=== PATIENT | male | born 1990 | race Caucasian/White ===

== ENCOUNTER 2016-05-08 13:01 | Inpatient (IN) | payer SELFPAY ==
[~2016-05-08] VITALS: Ht 193 cm; Wt 80.6 kg
[2016-05-08] MEDS: NICOTINE 21MG/24HR 1 EA TRANSDERMAL TD SCH (09:00)
[2016-05-08 14:44] LABS: BASO % 0.5 % (0.0-1.0); EOS # 0.2 K/mm3 (0.0-0.50); EOS % 3.1 % (0.0-3.0); LARGE UNSTAINED CELL # 0.1 K/mm3 (0.0-0.4); LARGE UNSTAINED CELL % 1.6 % (0.0-4.0); LYMPH # 1.1 K/mm3 (1.5-6.5); LYMPH % 23.7 % (24.0-44.0); MEAN CORPUSCULAR HEMOGLOBIN 27.3 pg (27.0-33.0); MEAN CORPUSCULAR HGB CONC 32.7 g/dl (32.0-36.5); MEAN CORPUSCULAR VOLUME 83.6 fl (80.0-96.0); MONO # 0.3 K/mm3 (0.0-0.8); MONO % 6.2 % (0.0-5.0); NEUTROPHILS # 3.1 K/mm3 (1.8-7.7); NEUTROPHILS % 64.9 % (36.0-66.0); PLATELET COUNT, AUTOMATED 281 k/mm3 (150-450); RED CELL DISTRIBUTION WIDTH 12.2 % (11.5-14.5); WHITE BLOOD COUNT 4.7 K/mm3 (4.0-10.0)
[2016-05-08 14:47] LABS: ALBUMIN 4.2 GM/DL (3.2-5.2); ALKALINE PHOSPHATASE 56 U/L (45-117); ALT/SGPT 25 U/L (12-78); ANION GAP 4 MEQ/L (8-16); AST/SGOT 14 U/L (15-37); BILIRUBIN,DIRECT 0.2 MG/DL (0.0-0.2); BILIRUBIN,TOTAL 0.9 MG/DL (0.2-1.0); BLOOD UREA NITROGEN 6 MG/DL (7-18); CALCIUM LEVEL 9.3 MG/DL (8.5-10.1); CARBON DIOXIDE LEVEL 34 MEQ/L (21-32); CHLORIDE LEVEL 104 MEQ/L (98-107); CREATININE FOR GFR 0.96 MG/DL (0.70-1.30); GLOMERULAR FILTRATION RATE > 60.0 (>60); GLUCOSE, FASTING 107 MG/DL (70-105); SODIUM LEVEL 142 MEQ/L (136-145); TOTAL PROTEIN 7.2 GM/DL (6.4-8.2)
[2016-05-08 14:57] LABS: CONTROL LINE INT CTR LINE PRESENT; METHADONE URINE NEGATIVE (NEGATIVE); TRICYCLIC ANTIDEPRESS URINE NEGATIVE (NEGATIVE)
[2016-05-08 17:40] VITALS: BP 136/71
[2016-05-08] MEDS ORDERED: MOM 30ML SUSPENSION UDC PO PRN (19:00)
[2016-05-08] MEDS ORDERED: ACETAMINOPHEN TAB 650MG DOSE (2X325MG) PO PRN (19:00)
[2016-05-08] MEDS ORDERED: MAALOX 30 ML SUSP *UDC PO PRN (19:00)
[2016-05-08] MEDS ORDERED: traZODone 50 MG TAB PO PRN (19:00)
[2016-05-09 06:24] VITALS: BP 114/58
[2016-05-09] MEDS: NICOTINE 21MG/24HR 1 EA TRANSDERMAL TD SCH (09:00)
--- NOTE | 2016-05-09 11:18 | HPEPDOC ---
Medical History and Physical Date of Admission May 08, 2016 at 17:03 History and Physical PCP: None ATTENDING: Dr. Trever Lynn HPI: 25yoM admitted to [facility] for unspecified depressive disorder, being medically examined today. No acute medical complaints today. Denies any fevers, chills, weakness, fatigue, RUST, CP, SOB, cough, palpitations, abdominal pain, N/V /D or changes in bowel or bladder habits. 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 ROS: As noted in HPI, otherwise 11pt ROS of systems reviewed and unremarkable. PE: GEN: 25 yo M, appears stated age. Well-nourished, well developed. No acute distress. Alert and oriented x 3. Pleasant, interactive. HEENT: Normocephalic, atraumatic. Pupils are equal, round, and reactive to light. Extraocular movements are intact. No nystagmus appreciated. Sclera are nonicteric. Conjunctiva without injection. Nose midline. Nasal turbinates without bogginess. EACs both patent BL. TMs both visualized and ramey with good cone of light, no bulging or erythema. No facial asymmetry. Moist mucous membranes. Dentition fair. Pharynx pink and moist, no cobblestoning. Neck supple , trachea midline. No lymphadenopathy or thyromegaly appreciated. CHEST: Regular rate and rhythm, +S1, +S2 LUNGS: Clear to auscultation bilaterally. No wheezes, rales, or rhonchi. Breathing appears symmetric and easy. Patient is speaking in full sentences. No accessory muscle use. ABD: Round, soft, non-tender, non-distended. +Bowel sounds throughout. No rebound or guarding. No costovertebral angle tenderness. EXT: Pulses 2+ bilaterally dorsalis pedis and radial. No lower extremity edema appreciated. SKIN: [place], dry, warm. Capillary refill <2sec. No rashes. NEURO: Alert and oriented x 3. Cranial nerves III-XII are intact. No focal deficits appreciated. EKG: Pending. A&P: 25yoM admitted to [facility] for unspecified depressive disorder 1. Psych. Plan per Psychiatry. Obtain baseline EKG to assure the safety of psychiatric medications as they can prolong the QT interval. 2. Follow up. No Primary Care Provider. Will attempt to establish PCP on discharge. 3. Substance use. Per psychiatry. 4. Staff member present throughout exam, jaren Graf. Vital Signs Vital Signs Label Value Date Time Patient Temperature 96.3 degrees F 05/09/16 0624 Temperature Source Tympanic 05/09/16 06 Pulse 86 05/09/16 0624 Respiratory Rate 16 bpm 05/09/16 06 Blood Pressure Assessment 114/58 (76) 05/09/16 0624 Laboratory Data Labs 24H Laboratory Tests 2 05/08/16 14:04: Acetaminophen Level < 2.0L, Aspartate Amino Transf (AST/SGOT) 14L, Alanine Aminotransferase (ALT/SGPT) 25, Alkaline Phosphatase 56, Total Bilirubin 0.9, Direct Bilirubin 0.2, Albumin 4.2, Albumin/Globulin Ratio 1.40, Anion Gap 4L, White Blood Count 4.7, Red Blood Count 5.37, Hemoglobin 14.7, Hematocrit 44.9, Mean Corpuscular Volume 83.6, Mean Corpuscular Hemoglobin 27.3, Mean Corpuscular Hemoglobin Concent 32.7, Red Cell Distribution Width 12.2, Platelet Count 281, Neutrophils (%) (Auto) 64.9, Lymphocytes (%) (Auto) 23.7L, Monocytes (%) (Auto) 6.2H, Eosinophils (%) (Auto) 3.1H, Basophils (%) (Auto) 0.5, Neutrophils # (Auto) 3.1, Lymphocytes # (Auto) 1.1L, Monocytes # (Auto) 0.3, Eosinophils # (Auto) 0.2, Basophils # (Auto) 0.0, Calcium Level 9.3, Ethyl Alcohol Level 0.006, Glomerular Filtration Rate > 60.0, Large Unclassified Cells # 0.1, Large Unclassified Cells % 1.6, Salicylates Level < 1.7L, Thyroid Stimulating Hormone (TSH) 0.821, Total Creatine Kinase 130, Total Protein 7.2 05/08/16 14:34: Urine Amphetamines Screen NEGATIVE, Urine Benzodiazepines Screen NEGATIVE, Urine Opiates Screen NEGATIVE, Urine Barbiturates Screen NEGATIVE, Urine Cannabinoids Screen NEGATIVE, Urine Cocaine Metabolite Screen NEGATIVE, Urine Methadone Screen NEGATIVE, Urine Tricyclic Antidepressants NEGATIVE CBC/BMP Laboratory Tests 05/08/16 14:04 Red Blood Count 5.37, Mean Corpuscular Volume 83.6, Mean Corpuscular Hemoglobin 27.3, Mean Corpuscular Hemoglobin Concent 32.7, Red Cell Distribution Width 12.2 , Neutrophils (%) (Auto) 64.9, Lymphocytes (%) (Auto) 23.7 L, Monocytes (%) ( Auto) 6.2 H, Eosinophils (%) (Auto) 3.1 H, Basophils (%) (Auto) 0.5, Neutrophils # (Auto) 3.1, Lymphocytes # (Auto) 1.1 L, Monocytes # (Auto) 0.3, Eosinophils # (Auto) 0.2, Basophils # (Auto) 0.0 Home Medications No Active Prescriptions or Reported Meds Allergies Coded Allergies: No Known Allergies (Unverified , 05/08/16) Mary Avendano May 09, 2016 11:18
--- NOTE | 2016-05-09 15:01 | HPEPDOC ---
[facility] History & Physical History and Physical DATE OF ADMISSION: May 08, 2016 at 17:03 CHIEF COMPLAINT: "I've been upset, I was depressed and down." HISTORY OF THE PRESENT ILLNESS: Patient is a 25-year-old, single, father of 2 children, who apparently told his mother yesterday that he felt he needed to see if therapist, mother made calls for patient to see a therapist and was advised to send patient to [facility] emergency room for evaluation. Patient states to documentation writer "I don't need to be in the hospital but I was honest with them in the emergency room when I said that it would be easier if I wasn't living." Patient denies having plan or intent to kill self at time, however, per EMR apparently stated he was considering OD on pills and was unable to contract for safety while in the ER. Patient denies history of previous suicidal ideation, self-injurious behavior, and denies history of suicide attempt. Patient reports current anxiety level of 3/10, depression 3/10, denies all suicidal and homicidal ideation, denies audiovisual hallucinations, and denies urge to engage in self-injurious behavior. Per collateral information, over the past month patient has been experiencing depressed mood with bouts of crying, reduced appetite, reduced sleep, guilt, helplessness and hopelessness, marital problems, poor concentration, suicidal ideation, weight loss, and anxiety. Patient was also apparently found "passed out" last Friday after attempting to self medicate utilizing ecstasy. Patient informs documentation writer he feels his symptoms of depressed mood are related to his wanting to maintain his relationship with his girlfriend, who is the mother of his child, and his girlfriend apparently wants to terminate relationship. Patient adds symptoms began with recent breakup with girlfriend, adds he has been staying with his mother since the breakup. Patient denies history of discomfort in social settings, denies panic and impulse control problems states he does not experience compulsive behaviors, irritability, agitation or aggression, denies history of unsanctioned violence, and denies having access to weapons. Patient denies history of unstable mood, denies symptoms of hypomania and thomas, and he reports concentration and appetite have been stable. Patient endorses reduced energy level and challenges with sleep related to maintenance, indicates he sleeps approximately 6 hours per night and denies nightmares symptoms. Patient denies physical pain at time of assessment. PAST PSYCHIATRIC HISTORY: Prior Psychiatric Disorder: Patient denies. Outpatient Treatment: Patient denies. Suicidal/Self injurious: Patient denies. Psychotropic Medication History: Patient denies. ALLERGIES: Please see below. HOME MEDICATIONS: See below PAST MEDICAL/SURGICAL HISTORY: Patient denies chronic health concerns, denies history of seizure or head injury. FAMILY PSYCHIATRIC HISTORY: Mother - depression Father - "anger" Patient denies family history of substance abuse, suicide attempt, and bipolar disorder However, per collateral information patient has history of bipolar disorder in family SOCIAL HISTORY: Patient states he was born and raised in the [facility] by biological parents who when patient was in the sixth grade, both are living and patient maintains contact. Patient has one sister, and one half brother and one half-sister. Patient is single, never , father of 2 children, ages 2 and 4, had been residing with girlfriend who is also the mother of his children, states was seeing his children daily until he was hospitalized. Patient states he and girlfriend broke up in December, but it lived together until a couple days ago. Patient indicates he wants to "fix" the relationship, adds his girlfriend wants to end the relationship. 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 Patient indicates he has friends in the [place] area, parents are supportive, and he has contact with his siblings, states he feels he has adequate support system. SUBSTANCE ABUSE HISTORY: Patient denies history of drug and alcohol abuse, however per collateral information he took ecstasy 1 last Friday to self medicate which resulted in him passing out. Patient states he has not consumed alcohol 4 years, notes he stopped drinking when his first child was born, denies ever having excessive alcohol use problem. LEGAL HISTORY: Denies. VITAL SIGNS: B/P 114/58, P 86, R 16, T 96.3 LABORATORY DATA: Please see below. Labs on admission indicated low lymph %, mono %, lymph # and elevated eos % UDS negative on admission MENTAL STATUS EXAMINATION: Patient is a 25-year-old male who is cooperative, dressed in hospital clothing, exhibits good personal hygiene, makes poor eye contact, is tall, thin, ambulates with steady gait, appears stated age. Speech: Is of normal rate, rhythm, volume, spontaneous Language skills are intact. Thought processes: Clear, goal-directed. Thought content: Rational, logical Abstract reasoning: Appears intact Description of associations: Intact. Description of abnormal or psychotic thoughts: Denies hallucinations, delusions , preoccupation with violence, homicidal or suicidal ideation, and obsessions. Judgment: Poor Insight: Poor. Orientation to time, place and person. Recent and remote memory: Appears intact Attention span and concentration: Within normal limits Language: Normal. Fund of knowledge: Adequate Mood: "I just want to get out of here." Appears sad, tense, anxious, tearful at times Affect: Blunted, congruent with mood DIAGNOSES: Unspecified mood disorder, rule out adjustment disorder with mixed anxiety and depressed mood ASSESSMENT: Patient is 25-year-old single, never , father of 2 children, who presented to the emergency room expressing suicidal ideation noting he was considering overdosing on pills. Patient was tearful at time of assessment, makes multiple requests to be discharged date of entry, isolated to room during the morning, but was able to except that he will not be discharged today. Patient was generally cooperative with assessment and later in day was observed to be visible on unit, interacting with peers and participating in unit programming. Patient denies need for inpatient treatment, states he feels his symptoms are related to recent breakup with girlfriend, minimizes his symptoms of anxiety and depression, and minimizes the events which led to his current hospitalization. Patient denies current suicidal and homicidal ideation, and is able to verbalize how to access supportive services on the unit if needed. Patient is currently denying need for psychotropic medications, was provided with information on medication options and was encouraged to consider taking medications in effort to reduce symptoms of anxiety and depression and to improve sleep, is aware he has trazodone available to him PRN. Will monitor patient's response to the inpatient environment and will evaluate resolution of suicidal ideation and discharge readiness. Patient indicates when discharged he is interested in participating in outpatient psychotherapy services. PROBLEM LIST: Suicidal ideation Anxiety Depression Ineffective coping Relationship tension Limited support system INITIAL TREATMENT PLAN: 1. Patient was admitted on a 9.39 legal status. 2. Complete history was obtained. 3. With patients permission, family will be contacted and database will be expanded. 4. Patients medication regimen will be reviewed and changed accordingly. 5. Patient will be provided with protected environment. 6. Patient will be treated with individual, group, and milieu therapies. 7. Patient will receive supportive psych-education. 8. Discharge planning will commence immediately. 9. Outpatient follow-up treatment will be strongly recommended. 10. The initial treatment plan will focus initially on: * Depression. * Risk for suicide. * Substance abuse. ESTIMATED LENGTH OF STAY: 5-7 DAYS. TIME SPENT COUNSELING AND COORDINATING INITIAL CARE: 50 minutes. Medications No Active Prescriptions or Reported Meds Allergies Coded Allergies: No Known Allergies (Unverified , 05/08/16) Susan Diaz May 09, 2016 15:01
[2016-05-09 18:00] VITALS: BP 121/72
--- NOTE | 2016-05-09 21:59 | ECGEPIP ---
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
[2016-05-10 07:10] VITALS: BP 122/57
[2016-05-10] MEDS: NICOTINE 21MG/24HR 1 EA TRANSDERMAL TD SCH (08:55)
--- NOTE | 2016-05-10 13:38 | IPNPDOC ---
[facility] Progress Note Progress Note DATE OF SERVICE: 05/10/16 HISTORY: Patient is a 25-year-old, single, father of 2 children, who presented to ER indicating he was experiencing suicidal ideation with thoughts of overdose dosing on pills. Oven Builder met with patient today to assess treatment progress on inpatient unit. Patient reports some reduction in symptoms of anxiety and depression, denies suicidal and homicidal ideation, denies audiovisual hallucinations, and denies urge to engage in self-injurious behavior. Patient denies symptoms of anger, feels his appetite is beginning to stabilize, endorses ongoing feelings of guilt and concern related to relationship stress, denies challenges with concentration and focus and feels his energy level is beginning to improve. Patient states his mother is visited and feels visit went well, indicates he remains uncertain as to the status of his relationship with his ex-girlfriend. At time of admission patient indicated he was wanting to reunite with ex-girlfriend and ex-girlfriend was expressing desire to terminate relationship. Patient indicates he feels his mood is level and denies experiencing crying episodes, denies physical pain and presents with no signs of acute distress at time of interaction. VITAL SIGNS: See below. NEW TEST RESULTS: No new results. Labs on admission indicated low lymph %, mono %, lymph # and elevated eos % Patient denies chronic health concerns, denies history of seizure or head injury. UDS negative on admission CURRENT MEDICATIONS: See below. MENTAL STATUS EXAMINATION: Patient is a 25-year-old male who is cooperative, dressed in hospital clothing, exhibits good personal hygiene, makes fair eye contact, is tall, thin, ambulates with steady gait, appears stated age. Speech: Is of normal rate, rhythm, volume, spontaneous Language skills are intact. Thought processes: Clear, goal-directed. Thought content: Rational, logical Abstract reasoning: Appears intact Description of associations: Intact. Description of abnormal or psychotic thoughts: Denies hallucinations, delusions , preoccupation with violence, homicidal or suicidal ideation, and obsessions. Judgment: Poor Insight: Poor. Orientation to time, place and person. Recent and remote memory: Appears intact Attention span and concentration: Within normal limits Language: Normal. Fund of knowledge: Adequate Mood: "I'm feeling a little better." Appears less sad, remains anxious, no tearfulness today Affect: Constricted, some brightening, congruent with mood DIAGNOSES: Unspecified mood disorder, rule out adjustment disorder with mixed anxiety and depressed mood ASSESSMENT: Patient appears to be adjusting to unit, has been attending groups and has been observed interacting selectively with peers. Patient continues to deny need for psychotropic medication but agrees to consider. Patient informs director underwriter sales he "slept better last night denies having a long time," denies nightmares symptoms, notes today he feels some improvement to symptoms of depression, remains anxious. Though patient expresses some improvement insight stating, "I know I need to be here," he continues to minimize symptoms and behaviors which led to his current hospitalization, continues to attribute his mood to recent breakup with girlfriend, mother of his children. Patient denies current suicidal and homicidal ideation, and is able to verbalize how to access supportive services on the unit if needed. Patient continues to deny need for psychotropic medications, was provided with information on medication options and was encouraged to consider taking medications in effort to reduce symptoms of anxiety and depression and to improve sleep, remains aware he has trazodone available to him PRN. Will monitor patient's response to the inpatient environment and will evaluate resolution of suicidal ideation and discharge readiness. Patient indicates ecstasy use last Friday reportedly for self- medication purposes was first and only time, will monitor need for outpatient substance abuse treatment. Patient indicates when discharged he is interested in participating in outpatient psychotherapy services, nursing coordinator has asked to begin investigating outpatient treatment options for patient. MANAGEMENT PLAN: Encourage patient to consider taking psychotropic medication to address symptoms if appropriate Maintain safety precautions Patient to attend groups and participate in unit programming to develop coping strategies Engage patient in discharge planning process and arrange meeting with support system to ensure safe discharge planning when appropriate Patient to follow up with PCM upon discharge TIME SPENT: 35 minutes. Vital Signs Vital Signs Date Time Temp Pulse Resp B/P Pulse Ox O2 Delivery O2 Flow Rate FiO2 05/10/16 07:10 97.4 70 18 122/57 05/09/16 18:34 Room Air 05/08/16 17:40 100 Current Medications Current Medications Acetaminophen (Tylenol Tab) 650 mg Q6HP PRN PO HEADACHE or DISCOMFORT; Start at 19:00; Stop 06/07/16 at 18:59 Al Hydrox/Mg Hydrox/Simethicone (Mylanta) 30 ml Q4HP PRN PO HEARTBURN/ INDIGESTION; Start 05/08/16 at 19:00; Stop 06/07/16 at 18:59 Home Med (Med Rec Complete!) ASDIRECTED XX ; Start 05/08/16 at 16:00; Stop at 16:01; Status DC Magnesium Hydroxide (Milk Of Magnesia) 30 ml DAILYPRN PRN PO CONSTIPATION; Start 05/08/16 at 19:00; Stop 06/07/16 at 18:59 Nicotine (Nicoderm Cq 21mg) 1 patch DAILY TD ; Start 05/08/16 at 09:00; Stop at 08:59 Trazodone HCl (Desyrel) 50 mg QHSP PRN PO INSOMNIA; Start 05/08/16 at 19:00; Stop 06/07/16 at 18:59 Allergies Coded Allergies: No Known Allergies (Unverified , 05/08/16) Susan Diaz May 10, 2016 13:38
[2016-05-10 18:00] VITALS: BP 114/58
[2016-05-11 06:38] VITALS: BP 122/59
[2016-05-11] MEDS: NICOTINE 21MG/24HR 1 EA TRANSDERMAL TD SCH (09:00)
[2016-05-11 18:00] VITALS: BP 119/58
[2016-05-12 06:45] VITALS: BP 114/58
--- NOTE | 2016-05-12 08:37 | IPN ---
DATE: 05/11/2016 SUBJECTIVE: "I am feeling better." OBJECTIVE: Patient was in bed with a restricted facial expression, appeared to be tearful. Patient said that he was "thinking about his kids." Patient was somewhat minimizing symptoms. No evidence of psychotic symptoms. No auditory or visual hallucinations or delusions. MENTAL STATUS EXAMINATION: Patient is dressed in [facility]. Patient is cooperative, has poor eye contact. Speech is slow and monotone. Mood is depressed and anxious. Affect is restricted. No delusions or hallucinations. Memory, attention, and concentration are fair. Patient is able to contract for safety. Denies suicidal or homicidal ideation during the interview. Insight and judgment is limited. ASSESSMENT: 1. Depression. 2. Suicidal ideation. PLAN: 1. Continue with psychosocial interventions and trazodone at bedtime as needed for insomnia.
[2016-05-12] MEDS: NICOTINE 21MG/24HR 1 EA TRANSDERMAL TD SCH (09:00)
[2016-05-12 18:00] VITALS: BP 158/72
[2016-05-13 06:22] VITALS: BP 156/73
[2016-05-13] MEDS: NICOTINE 21MG/24HR 1 EA TRANSDERMAL TD SCH (08:54)
--- NOTE | 2016-05-13 17:31 | IPN ---
DATE: 05/12/2016 SUBJECTIVE: "I think I'm ready to go." OBJECTIVE: Patient reports improvement and he is asking about discharge dates. Patient is denying any suicidal ideation and hopes that he can be discharged tomorrow. Patient denies any feelings of depression at this point. No evidence of psychotic symptoms. No auditory or visual hallucinations or delusions. MENTAL STATUS EXAMINATION: Patient is dressed in [facility]. Patient is cooperative, has fair eye contact. Speech is normal in rate, volume, articulation, is coherent, and is spontaneous. Mood is reported as improved. Affect is congruent with mood. No delusions or hallucinations. Short-term and long-term memory are fair. Patient is fully oriented. Associations are intact. Thinking is logical. Thought content is appropriate. Patient is denying suicidal or homicidal ideation. Insight and judgment is fair. ASSESSMENT: 1. Depression. 2. Suicidal ideation. PLAN: 1. Continue psychosocial interventions and trazodone at bedtime for insomnia.
[2016-05-13 18:00] VITALS: BP 122/69
[2016-05-14 06:28] VITALS: BP 117/64
[2016-05-14] MEDS: NICOTINE 21MG/24HR 1 EA TRANSDERMAL TD SCH (08:52)
--- NOTE | 2016-05-14 09:25 | IPN ---
DATE: 05/13/2016 SUBJECTIVE: "I feel fine." OBJECTIVE: Patient is lying in bed. Patient reports significant improvement from admission. Patient is able to smile, is interacting well with other patients and staff. There is no psychomotor retardation. Patient is denying suicidal or homicidal ideation. No evidence of psychotic symptoms. MENTAL STATUS EXAMINATION: Patient is dressed in casual clothes. Patient is calm and cooperative, has fair eye contact. His speech is normal in rate, volume, articulation, is coherent and is spontaneous. Mood is slightly depressed, but significantly improved from admission. Affect is congruent with mood. No evidence of delusions or hallucinations. Memory, attention, and concentration are fair. Patient is able to contract for safety. Patient denies suicidal or homicidal ideation during the interview. Insight and judgment is fair. ASSESSMENT: 1. Depression. 2. Suicidal ideation. PLAN: 1. Continue with psychosocial interventions. 2. Discharge planning has started.
--- NOTE | 2016-05-14 11:53 | DS.PDOC ---
[facility] Discharge Summary Discharge Summary DATE OF ADMISSION: May 08, 2016 at 17:03 DATE OF DISCHARGE: May 14, 2016 HISTORY: Patient is a 25-year-old, single, father of 2 children, who apparently told his mother yesterday that he felt he needed to see if therapist, mother made calls for patient to see a therapist and was advised to send patient to [facility] emergency room for evaluation. Patient states to communications writer "I don't need to be in the hospital but I was honest with them in the emergency room when I said that it would be easier if I wasn't living." Patient denies having plan or intent to kill self at time, however, per EMR apparently stated he was considering OD on pills and was unable to contract for safety while in the ER. Patient denies history of previous suicidal ideation, self-injurious behavior, and denies history of suicide attempt. Patient reports current anxiety level of 3/10, depression 3/10, denies all suicidal and homicidal ideation, denies audiovisual hallucinations, and denies urge to engage in self-injurious behavior. Per collateral information, over the past month patient has been experiencing depressed mood with bouts of crying, reduced appetite, reduced sleep, guilt, helplessness and hopelessness, marital problems, poor concentration, suicidal ideation, weight loss, and anxiety. Patient was also apparently found "passed out" last Friday after attempting to self medicate utilizing ecstasy. Patient informs communications writer he feels his symptoms of depressed mood are related to his wanting to maintain his relationship with his girlfriend , who is the mother of his child, and his girlfriend apparently wants to terminate relationship. Patient adds symptoms began with recent breakup with girlfriend, adds he has been staying with his mother since the breakup. Patient denies history of discomfort in social settings, denies panic and impulse control problems states he does not experience compulsive behaviors, irritability, agitation or aggression, denies history of unsanctioned violence, and denies having access to weapons. Patient denies history of unstable mood, denies symptoms of hypomania and thomas, and he reports concentration and appetite have been stable. Patient endorses reduced energy level and challenges with sleep related to maintenance, indicates he sleeps approximately 6 hours per night and denies nightmares symptoms. Patient denies physical pain at time of assessment. PAST PSYCHIATRIC HISTORY: Prior Psychiatric Disorder: Patient denies. Outpatient Treatment: Patient denies. Suicidal/Self injurious: Patient denies. Psychotropic Medication History: Patient denies. MEDICAL/SURGICAL HISTORY: Patient denies chronic health concerns, denies history of seizure or head injury. NEW TEST RESULTS: No new results. Labs on admission indicated low lymph %, mono %, lymph # and elevated eos % Patient denies chronic health concerns, denies history of seizure or head injury. 05/09/16 EKG SINUS BRADYCARDIA Comparison tracing not on file UDS negative on admission FAMILY PSYCHIATRIC HISTORY: Mother - depression Father - "anger" Patient denies family history of substance abuse, suicide attempt, and bipolar disorder However, per collateral information patient has history of bipolar disorder in family SOCIAL HISTORY: Patient states he was born and raised in the [facility] by biological parents who when patient was in the sixth grade, both are living and patient maintains contact. Patient has one sister, and one half brother and one half-sister. Patient is single, never , father of 2 children, ages 2 and 4, had been residing with girlfriend who is also the mother of his children, states was seeing his children daily until he was hospitalized. Patient states he and girlfriend broke up in December, but it lived together until a couple days ago. Patient indicates he wants to "fix" the relationship, adds his girlfriend wants to end the relationship. 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 Patient indicates he has friends in the [place] area, parents are supportive, and he has contact with his siblings, states he feels he has adequate support system. SUBSTANCE ABUSE HISTORY: Patient denies history of drug and alcohol abuse, however per collateral information he took ecstasy 1 last Friday to self medicate which resulted in him passing out. Patient states he has not consumed alcohol 4 years, notes he stopped drinking when his first child was born, denies ever having excessive alcohol use problem. LEGAL HISTORY: Denies. TREATMENT PROGRESS ON UNIT: Patient has adjusted well to unit, was initially isolative to room, but has been visible, attending groups, and interacting appropriately with staff and peers. Patient has consistently denied need for psychotropic medication. Patient indicates he is been sleeping well, denies challenges with appetite, concentration and focus, and energy level. Patient denies symptoms of anxiety and depression and notes symptoms subsided during inpatient stay, indicates he feels he has developed effective coping mechanisms and he expresses notable improvement in insight and judgment. Patient is future oriented and notes he feels positive about his relationship with his ex- girlfriend, indicating he feels it is time for him to start exploring what he wants to do with his life in terms of career and maintaining his relationship with his children whom he indicates are very important to him. Patient denies suicidal and homicidal ideation and is able to verbalize concrete strategies for managing symptoms of anxiety, depression, or suicidal ideation should they reemerge. Patient is further able to verbalize how to access supportive services if needed. Patients family meeting has been completed and patients mother indicates she is in agreement with patients discharge and states she has no reservations about patients return to her home. Patient is requesting discharge today and is also requesting to participate in outpatient psychotherapy at [facility], has been encouraged to consider substance abuse treatment which she declines at this time but agrees to consider. Patient verbalizes understanding of and agreement with discharge plan. MENTAL STATUS EXAMINATION: Patient is a 25-year-old male who is cooperative, dressed in hospital clothing, exhibits good personal hygiene, makes good eye contact, is tall, thin, ambulates with steady gait, appears stated age. Speech: Is of normal rate, rhythm, volume, spontaneous Language skills are intact. Thought processes: Clear, goal-directed. Thought content: Rational, logical Abstract reasoning: Appears intact Description of associations: Intact. Description of abnormal or psychotic thoughts: Denies hallucinations, delusions , preoccupation with violence, homicidal or suicidal ideation, and obsessions. Judgment: Adequate Insight: Adequate Orientation to time, place and person. Recent and remote memory: Appears intact Attention span and concentration: Within normal limits Language: Normal. Fund of knowledge: Adequate Mood: "I'm I feel good, I'm ready to go home." No indication of depression or anxiety today, no mood lability Affect: Mild constriction at times, generally full range, brightens frequently inappropriately, congruent with mood CONDITION ON DISCHARGE: Stable, no suicidal or homicidal ideation DIAGNOSES: Unspecified mood disorder, rule out adjustment disorder with mixed anxiety and depressed mood MEDICATIONS ON DISCHARGE: See below FOLLOW UP PLAN: Patient to discharge today to home with mother and to be transported by mother Patient participate in outpatient psychotherapy services through [facility] Patient to follow up with PCM within 5-7 TIME SPENT COORDINATING CARE: 40 minutes i Vital Signs Vital Sign - Last 24 Hours 05/13/16 05/14/16 18:00 06:28 Temp 96.3 96.4 Pulse 88 70 Resp 16 18 B/P 122/69 117/64 Medications Scheduled Nicotine (Nicoderm Cq) 21 Mg/24 Hr Dis 21 MG TD DAILY smoking cessation ( Reported) Allergies Coded Allergies: No Known Allergies (Unverified , 05/08/16) Susan Diaz May 14, 2016 11:53 in participating in outpatient psychotherapy services, foreign exchange student coordinator has asked to begin investigating outpatient treatment options for patient. MANAGEMENT PLAN: Encourage patient to consider taking psychotropic medication to address symptoms if appropriate Maintain safety precautions Patient to attend groups and participate in unit programming to develop coping strategies Engage patient in discharge planning process and arrange meeting with support system to ensure safe discharge planning when appropriate Patient to follow up with PCM upon discharge Vital Signs Vital Sign - Last 24 Hours 05/13/16 05/14/16 18:00 06:28 Temp 96.3 96.4 Pulse 88 70 Resp 16 18 B/P 122/69 117/64 Medications Scheduled Nicotine (Nicoderm Cq) 21 Mg/24 Hr Dis 21 MG TD DAILY smoking cessation ( Reported) Allergies Coded Allergies: No Known Allergies (Unverified , 05/08/16) Susan Diaz May 14, 2016 11:53
[2016-05-14] MEDS ORDERED: NICO21DI5 TD (14:23)
== END 2016-05-14 14:50 | disposition home or self-care (01) | DRG 753 ==
LOC: M ED 14:58 → M ED INP 17:03 → M PSY 17:18 → M ED 17:18 → M PSY 17:31
PROVIDERS: ADMIT Psychiatry & Neurology Psychiatry; ATTEND Internal Medicine Addiction Medicine
DX: F39 Unspecified mood [affective] disorder (principal); F43.23 Adjustment disorder with mixed anxiety and depressed mood